=== PATIENT | female | born 2000 | race Caucasian/White ===

== ENCOUNTER 2024-08-24 17:31 | Emergency (ER) | payer BC ==
[~2024-08-24] VITALS: Ht 165.1 cm; Wt 54.0 kg
[2024-08-24 17:48] VITALS: BP 139/80; PULSE 95; RESP 16; TEMP 98.4; O2SAT 100
[2024-08-24] MEDS ORDERED: HYDR-3686 PO (18:46)
[2024-08-24] MEDS ORDERED: LAMO100T PO (18:46)
[2024-08-24] MEDS ORDERED: LAMO25TA5 (18:46)
--- NOTE | 2024-08-24 19:21 | Physician Documentation ---
History of Present Illness General Chief Complaint: Ingestion Error Stated Complaint: DOUBLE DOSED ON MEDICATION Time Seen by MD: 18:27 History of Present Illness Initial Comments 24-year-old female who presents to the emergency department because she took an accidental extra dose of her Lamictal. Normally takes 175 mg daily and today unintentionally took an extra dose. She wonders if this may cause her any distress specifically follow up with such as Crawford-Toni syndrome. Patient was takes Lamictal for mood stabilization for borderline. She is without suicide intent or homicidal intent. She was very conversational very while roland ented. States he has been on Lamictal for 2-1/2 months and has had experienced no side effects. In fact today after noting that she may have taken the 2nd dose she tried to induce vomiting. The pill alphonso may have not been ingested. Medication Reconciliation Allergies: Coded Allergies: No Known Allergies (Unverified , 08/24/24) Scheduled Lamotrigine (LaMICtal tablet), 1 TAB PO DAILY, (Reported) Miscellaneous Medications Hydroxyzine Hcl* (Atarax*), 1-2 TAB PO, (Reported) Lamotrigine (Lamotrigine), (Reported) Review of Systems All Other Systems at this time: Reviewed and Negative GI: Denies: nausea, vomiting Neuro: Denies: seizures Integ: Denies: rash Physical Exam Physical Exam Vital Signs: RN Vital Signs have been reviewed: Yes, Temperature: 98.4, Heart Rate: 95, Respiratory Rate: 16, BP: 139/80, Pulse Oximetry: 100, Weight: 54.000 General Appearance: alert, WD/WN, no apparent distress Head: normal inspection Face: normal inspection Pupils/EOM/Fundus: PERRLA Respiratory: no respiratory distress Chest: no accessory muscle use Cardiovascular: regular rate, rhythm Extremities: normal range of motion Neurologic: oriented x4 Motor / Sensory: no motor deficit, no sensory deficit Psychiatric: normal mood/affect, anxiety Skin: normal color, warm/dry; No: rash Progress Results/Orders Results/Orders Vital Signs 08/24/24 17:48 Temp 98.4 Pulse 95 Resp 16 B/P (MAP) 139/80 Pulse Ox 100 Medical Decision Making Differential Diagnosis 24-year-old female accidental extra pill ingestion of her chronic medication. No clinical suspicion for intent to harm. Additional tablet insignificant not waiting further workup. Discussed side effects with patient and need to return in. She will otherwise follow up with the therapist and psychiatrist and resume her normal medication regimen in the morning. Departure Disposition: HOME / SELF CARE / HOMELESS Impression: Primary Impression: Accidental drug ingestion Qualified Codes: T50.901A - Poisoning by unspecified drugs, medicaments and biological substances, accidental (unintentional), initial encounter Condition: Stable Discharge Instructions: Overdose, Accidental Additional Instructions: Please continue with your Lamictal as prescribed tomorrow. Make contact with your therapist tomorrow and with your Psychiatrist on Tuesday. Return to the emergency department for any suspected side effects. Referrals: NO PRIMARY CARE PROVIDER (PCP) Education Educated: Patient Educated regarding: diagnosis Signature Scribe Signature: . Attestation: . KAMALA MITCHELL PAC August 24, 2024 19:21
== END 2024-08-24 19:28 | disposition home or self-care (01) ==
LOC: ER 17:32
DX: R53.1 Weakness (principal); T40.415A Adverse effect of fentanyl or fentanyl analogs, initial encounter; Z79.899 Other long term (current) drug therapy; Y92.89 Other specified places as the place of occurrence of the external cause
CPT/HCPCS: 99281